=== PATIENT | female | born 1990 | race Caucasian/White ===

== ENCOUNTER 2016-08-04 10:18 | Day surgery (SDC) | payer OTHER ==
[2016-07-29 10:23] VITALS: BMI 30.2
[2016-08-04] MEDS ORDERED: VASOPRESSIN IV SCH (13:00)
[2016-08-04] MEDS ORDERED: SODIUM CHLORIDE 0.9% IV SCH (13:00)
[2016-08-04] MEDS ORDERED: Propofol 10 mg/ml Inj (20 ML) ONE (13:11)
[2016-08-04] MEDS ORDERED: Midazolam 2 MG/2 ML VIAL ONE (13:11)
[2016-08-04] MEDS ORDERED: VASOPRESSIN INJ SCH (13:30)
[2016-08-04] MEDS ORDERED: SODIUM CHLORIDE 0.9% INJ SCH (13:30)
[2016-08-04 15:21] VITALS: BP 104/57; PULSE 90; RESP 18; TEMP 97; O2SAT 100
--- NOTE | 2016-08-06 07:54 | OP ---
PROCEDURE DATE: 08/04/2016 SURGEON: Ebony Parks MD PATENT ATTORNEY: None. ANESTHESIA: General LMA. PREOPERATIVE DIAGNOSIS: Fibroid uterus, menorrhagia, endometrial polyp. POSTOPERATIVE DIAGNOSES: Fibroid uterus, menorrhagia, endometrial polyp. OPERATIVE PROCEDURE: Hysteroscopy, D and C, MyoSure polypectomy, IUD insertion of Mirena. OPERATIVE FINDINGS: Fibroid uterus, diffusely polypoid endometrium with thickened lining especially posterior wall. IUD was inserted with no issues after sounding to 9 cm. There is no evidence of per foration at the end of the procedure. ESTIMATED BLOOD LOSS: 10 mL FLUID DEFICIT: Normal saline less than 500 mL OPERATIVE INDICATIONS: The patient is a 25-year-old with persistent menorrhagia requiring medical ma nagement. She was found to have polyps x 2 on ultrasound. The patient was consented for the above p rocedure after discussing risks, benefits and alternatives. OPERATIVE PROCEDURE: The patient was taken to the OR and timeout was performed. She was placed in d orsal lithotomy position. The usual prep and drape was done. The cervix was visualized and grasped with single tooth tenaculum. The cervix was serially dilated to allow passage of the operative MyoSu re hysteroscope. Normal saline was used as distention medium. The above findings were discovered an d the MyoSure hysteroscope was used to resect the pathology and perform directed curettage. All inst ruments, laps, and needles were removed from the patient. The count was correct x 2. The Mirena was placed after sounding to 9 cm. The strings were cut about 3 cm from the os. There was excellent he mostasis at the end of the procedure. POSTOPERATIVE CONDITION: Stable for PACU. Ebony Parks MD cc: [id number] TT: 08/06/2016 03:33:39 08/06/2016 06:48:05
== END 2016-08-04 15:48 | disposition home or self-care (01) ==
LOC: C.SDS 10:18
PROVIDERS: ATTEND Obstetrics & Gynecology
DX: N84.0 Polyp of corpus uteri (principal); Z30.430 Encounter for insertion of intrauterine contraceptive device; N92.0 Excessive and frequent menstruation with regular cycle; D25.9 Leiomyoma of uterus, unspecified
CPT/HCPCS: 36415; 58300; 58558; 86850; 86900; 88305; J2250; J2405; J2704; J3010